=== PATIENT | male | born 1960 | race Caucasian/White ===

== ENCOUNTER 2021-01-12 07:33 | Inpatient (IN) | payer OTHER, MEDICARE, SELFPAY ==
[2021-01-12] VITALS (13 sets, daily range): BP systolic 104–166; BP diastolic 69–110; PULSE 84–102; RESP 16–20; TEMP 37–37.6; O2SAT 91–100; BMI 31.8
[2021-01-12] MEDS: clopidogrel 300 mg Tablet 600 MG PO (07:42)
[2021-01-12] MEDS: ondansetron 2 mg/ML SDV 2 mL 4 MG IVP (07:42)
[2021-01-12] MEDS: morphine 4 mg/mL SDV 1 mL IVP ×2 (07:42→07:53)
[2021-01-12] MEDS: heparin 5,000 unit/mL INJ 1 mL 4000 UNIT IV (07:43)
--- NOTE | 2021-01-12 07:43 | ECG_ITS ---
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 Measurements Intervals [place] Rate: 89 P: 65 HI: 183 QRS: 2 QRSD: 97 T: 50 QT: 384 QTc: 469 Interpretive Statements SINUS RHYTHM ANTEROSEPTAL MYOCARDIAL INFARCTION [40+ ms Q WAVE IN V1-V4], PROBABLY RECCENT Compared to ECG 01/12/2021 07:41:15 Sinus tachycardia no longer present ST (T wave) deviation no longer present Myocardial infarct finding still present Electronically Signed On 01-12-2021 18:43:04 CDT by Anibal Leung M.D. [email or web address]/[id number] f
--- NOTE | 2021-01-12 07:46 | XACV_ITS ---
Ht: 180 cm Wt: 107 kg BSA: 2.34 m2 Gender: Male : 1960 Any Known Allergies: Other Exam Priority: Routine Procedure(s): Procedure Description: Diagnostic procedure Procedure Description: Left Heart Catheterization Diagnostic Cath Status: Emergency Diagnostic Findings * Left Main has no disease. * Circumflex has no disease. * Right Coronary Artery has no disease. * Proximal Left Anterior Descending: subtotal occlusion, OSMANI: 2 flow. * Coronary angiography shows right dominance. Interventional Findings * Proximal Left Anterior Descendin% stenosis treated with a AB TREK 3.00X12 RX BALLOON, and MDT R CELIA 4.5X15 LORENA. 0% residual stenosis, OSMANI: 3 flow. Conclusions 1. There is subtotal occlusion coronary artery disease with one vessel disease. 2. Proximal Left Anterior Descending was treated with a Balloon, and Drug Eluting Stent. Recommendations * 1-Return to inpatient for close monitoring and routine cath care 2-Risk factor modification for secondary prevention 3-Statin and aspirin 81 mg life--long, if tolerated 4-Patient was pre-loaded with 600 mg of Plavix, continue Plavix 75mg p.o. daily for at least one year. We will assess at the end of one year again to continue if further or not 5-Continue optimal medical management 6-Follow up with Dr. Damon in four weeks and your primary care in 10 days. Interventional RX Recommendation: PCI w/o planned CABG Diagnostic RX Recommendation: PCI w/o planned CABG Clinical Evaluation EBL: 5mL-10mL Procedural Details Admit Source: Emergency department. Pre-Procedure Time Out. Identified patient by full name and date of as verbalized by the patient/guarantor. Does the consent match the physician's order: N/A Emergent. Accurate & Complete Informed Consent: N/A Emergent. Inpatient/Outpatient History & Physical on Chart: N/A Emergent. If H&P is completed, is and addenduem needed: N/A Emergent; If yes, is the addendum complete: N/A Emergent. Visualize and Verify Site with Patient/Guarantor: N/A. Relevant Radiology Images available: N/A Emergent. Pre-op teaching completed and patient verbalized understanding. The risks, benefits, and alternatives of sedation and/or procedure were discussed by physician. The patient agrees to continue. Procedure started. Correct patient, site and procedure confirmed by cath team. PERRLA. Strong, equal hand export agent bilaterally. Lungs clear x 5 lobes. IV Site on Arrival: 18 gauge in the left anticubital. Oxygen started at 2liters/min via nasal canula. bilateral groins was prepped with chloroprep then draped in the usual sterile fashion. right radial was prepped with chloroprep then draped in the usual sterile fashion. Physician notified. Baseline sample Acquired. HR: 73 BPM. Physician arrived. Physician scrubbed in. Immediate Pre-Procedure Time Out. Correct Patient: Yes; Correct Procedure: Yes; Correct Site: Yes; Correct Patient Position: Yes; Correct Supplies: Yes; Dried Flammable Prep: Yes; Blood Products Available: N/A;. Lidocaine 1% infiltrated to the right radial. Arterial access obtained. 6 jamaican XB 3.5 guide catheter was inserted over the wire. Inflation number : 1 A AB TREK 3.00X12 RX BALLOON was prepped and advanced across the Prox LAD , then inflated to 20 LAKSHMI for 0:16 seconds. Balloon out. Inflation Number : 2 A ALVINO Hensley CELIA 4.5X15 LORENA -Lot Number# [id number] exp date: 07-25-2021 was prepped and advanced across the Prox LAD. The stent was deployed at 16 LAKSHMI for 0:23 seconds. Stent balloon out over wire. Results checked. Wire out. Guide catheter out. A 5 jamaican JR4 catheter in over wire. Blas Tim, RN updating at this time. Catheter out. TR band placed. Hemostasis obtained. Post Procedure: Pulses reassessed and unchanged. PERRLA. Strong, equal hand export agent bilaterally. No VTE prophylaxis required. A TR Band was successful obtaining hemostatsis at the Right Radial artery insertion site. ACT drawn. Results 400 seconds. Therapeutic limits - pre-heparin administration 90-150 seconds and monitoring heparin during a vascular procedure >250 seconds. Contrast type used: Omnipaque 300 mgI/mL, 500 mL bottle. Contrast Material : Omnipaque 135 ml. [facility] Clinical Fraility Score: 3: Managing Well. Archives Technician Indications: ACS <= 24 hours/STEMI. Chest Pain Symptom Assessment: Typical Angina Symptoms. Cardiovascular Instability: Yes, if yes, STEMI. PCI Indication: Subtotally occluded prox LAD. Post-op diagnosis: drug illuting stent to prox LAD. Complications: none. Estimated blood loss: 5mL-10mL. Procedure completed. Patient transferred by wheelchair to ICU. Vital chart was stopped. Access Site Site: Right Radial artery Sheath Size: 6 Fr Hemostasis Method: TR Band Hemostasis Success: Successful Procedure Medications Start: 8:04 AM Stop: 8:04 AM Medication: Versed Amount: 1 mg Route: I.V. Start: 8:04 AM Stop: 8:04 AM Medication: Fentanyl Amount: 50 mcg Route: I.V. Start: 8:14 AM Stop: 8:14 AM Medication: Heparin Amount: 5000 units Route: I.V. Start: 8:17 AM Stop: 8:17 AM Medication: Aggrastat 12.5 mg/250 mL Amount: 53 ml Route: I.V. bolus Start: 8:19 AM Stop: 8:19 AM Medication: Aggrastat 12.5 mg/250 mL Amount: 19.1 ml/hr Route: I.V. drip Start: 8:19 AM Stop: 8:19 AM Medication: Nitrogylcerin Amount: 200 mcg Route: I.C. Start: 8:12 AM Stop: 8:12 AM Medication: Versed Amount: 1 mg Route: I.V. Start: 8:12 AM Stop: 8:12 AM Medication: Fentanyl Amount: 50 mcg Route: I.V. I, the attending physician, have reviewed and verified all procedure medications. Yes, all medications given per verbal order Report Signatures Finalized by Kareen Damon MD on 01/15/2021 08:57 AM
[2021-01-12] MEDS: metoprolol tartrate 1 mg/1 mL SDV 5 mL 5 MG (07:47)
[2021-01-12] MEDS: nitroglycerin drip 50 MG/250 ML PREMIX IV (07:48)
--- NOTE | 2021-01-12 07:52 | PM.HP ---
Providers/Chief Complaint Admitting Physician: Kareen Damon MD Chief Complaint: STEMI alert History of Present Illness Ezequiel Sawyer is a 60 year old male past medical history significant for cigar smoking/tobacco abuse history of hypertension hyperlipidemia for the last 24 hours has worsening of chest pain and waxing and waning pattern. This morning pain became more consistent along with nausea and diaphoresis he called 911. EKG showed anterior wall ST elevation. He was given nitroglycerin loaded with Plavix and 4000 heparin. Repeat twelve-lead EKG in the ER showed interventricular conduction block with improvement in the ST elevation however patient continues to have chest pain which he describes 7 out of 10. It is the reason we will be taking patient to the Geodetic Technician for urgent coronary angiogram/left heart cath and PCI if indicated. Patient has been explained all risk benefit and alternative for the procedure he has been explained the risk for stroke arrhythmia urgent emergent bypass major minor bleed requiring transfusion. He understood and would like to proceed with it. Medications/Allergies Home Medications Medication Instructions Recorded Confirmed Last Taken Type Pepcid AC 20 mg PO BID 01/12/21 01/12/21 01/11/21 22:30 History allopurinol 200 mg PO DAILY 01/12/21 01/12/21 01/11/21 08:00 History atorvastatin 80 mg PO BEDTIME #90 tab 01/13/21 Unknown Rx carvedilol [Coreg] 6.25 mg PO BID #60 tab 01/13/21 Unknown Rx clopidogrel 75 mg PO DAILY #90 tab 01/13/21 Unknown Rx lisinopril 2.5 mg PO DAILY #60 tab 01/13/21 Unknown Rx Allergies Allergy/AdvReac Type Severity Reaction Status Date / Time lisinopril Allergy ADR-Cough Verified 01/12/21 07:45 PFSH Acute PFSH: Medical History Essential hypertension Vitals/I&O/Wt Last Vital Signs Pulse 92 01/12/21 07:47 Resp 18 01/12/21 07:47 BP 166/110 01/12/21 07:47 Pulse Ox 100 01/12/21 07:47 Weight last 48 hrs Weight 235 lb Physical Exam Narrative: EXAM NARRATIVE: GENERAL: Patient is alert, awake and oriented x3. Moderate distress NECK: No jugular vein distension. HEENT: No cyanosis. No icterus. No pallor. HEART: Regular S1 and S2. No murmur, rub or gallop. LUNGS: Clear to auscultate bilaterally. ABDOMEN: Soft, nontender and nondistended. Positive bowel sounds. No guarding, rebound or tenderness. CENTRAL NERVOUS SYSTEM: Grossly nonfocal. EXTREMITIES: Lower extremities without edema bilaterally. Data : 01/13/21 04:45 01/13/21 04:45 A&P Assessment and plan (1) ST elevation (STEMI) myocardial infarction: Patient has dynamic EKG changes with waxing and waning pattern of chest pain presentation most consistent with ST elevation NV most likely LAD territory. We will proceed with urgent left heart cath. As defined above patient has been consented. He has been loaded with Plavix and given heparin in the ER. Further plan will be advised as per progress of the patient. Status: Acute Qualifiers: Involved coronary artery: other anterior wall coronary artery Qualified Code(s): I21.09 - ST elevation (STEMI) myocardial infarction involving other coronary artery of anterior wall (2) Essential hypertension: Moderately elevated will give nitroglycerin Status: Acute Attestations Medical Necessity Statement*: He is admitted as inpatient expecting stay to cross more than 2 midnights. Coding Level of Care Code New Pt Acute Information Systems Security Specialist for [facility] Patient Type New Medical Decision Making Moderate Complexity Diagnoses ST elevation (STEMI) myocardial infarction I21.09 Involved coronary artery: other anterior wall coronary artery Essential hypertension I10
--- NOTE | 2021-01-12 07:55 | ECG_ITS ---
[facility] Test Date: 2021-01-12 Pat Name: Ezequiel Sawyer Department: Room: ICU12 Gender: Male Drug Purchaser: MATEUS: 1960 Requested By: Silvestre Yousif Order Number: [id number] Laura MD: Anibal Leung M.D. Measurements Intervals [place] Rate: 101 P: 67 MD: 175 QRS: 35 QRSD: 106 T: 67 QT: 356 QTc: 462 Interpretive Statements SINUS TACHYCARDIA ANTEROSEPTAL MYOCARDIAL INFARCTION [40+ ms Q WAVE IN V1-V4], PROBABLY OLD ST DEPRESSION, CONSIDER SUBENDOCARDIAL INJURY [0.1+ mV ST DEPRESSION] INTERPRETATION BASED ON A DEFAULT AGE OF 40 YEARS No previous ECG available for comparison Electronically Signed On 01-12-2021 18:43:16 CDT by Anibal Leung M.D. [id number] f
--- NOTE | 2021-01-12 07:58 | ED_ITS ---
HPI - Chest Pain General: Chief Complaint: Chest Pain Stated Complaint: STEMI alert Time Seen by Provider: 01/12/21 07:35 History of Present Illness: HPI narrative: 60-year-old male presents emergency room via EMS. He was a STEMI called in the field. His initial field EKG showed mild ST elevation in V2 and 3 by the time he arrived here that had resolved and he had some lateral ST depression. Patient is having severe pain radiating into his right arm along with diaphoresis nausea and shortness of breath. He had a similar episode yesterday while he was doing some minimally exertional work around the house after 20 minutes of rest stopped. Today he was at rest when it began. He has no known history of coronary disease has a history of hypertension is currently on amlodipine 10 mg daily which she did not take this morning. He previously was on lisinopril but that was stopped due to JAMIL inhibitor cough. Patient is not a smoker. He has no history of any vascular disease. He is not diabetic. MD complaint: chest pain Pertinent past history: other (Hypertension) Onset (ago): minute(s) Timing of current episode: constant Prior episodes: Yes Onset: during rest Pain location: left chest Pain radiation: left arm and left shoulder Severity: severe Quality: heaviness and sharp Relieving factors: nitroglycerin Exacerbating factors: nothing Associated symptoms: Reports diaphoresis, dyspnea, leg edema, nausea and sense of impending doom; Deny abdominal pain, fever(s), palpitations, syncope or vomiting Treatment prior to arrival: aspirin and nitroglycerin Review of Systems Const: Reports: diaphoresis; Denies: fever(s) ENMT: Denies: throat pain, ear or mastoid pain, nasal discharge or nasal congestion Card: Denies: palpitations or syncope Resp: Reports: dyspnea GI: Reports: nausea; Denies: abdominal pain or vomiting : Denies: flank pain, dysuria, urinary frequency or urinary urgency Skin/Breast: Denies: rash or pruritus PFS ED PFSH: Medical History Essential hypertension Physical Exam Const: COMMON NORMALS: no acute distress GENERAL APPEARANCE: cooperative and comfortable ORIENTATION/CONSCIOUSNESS: Yes awake, Yes oriented to person, Yes oriented to place and Yes oriented to time HENMT: COMMON NORMALS: normocephalic, atraumatic, hearing grossly normal bilaterally and external ears normal HEAD & SCALP: normocephalic and atraumatic EXTERNAL EAR: Yes external ears normal Neck/C-Spine: COMMON NORMALS: no JVD Resp: COMMON NORMALS: normal respiratory effort, No retractions, No use of accessory muscles and clear to auscultation bilaterally AUSCULTATION: clear to auscultation bilaterally Cardio: COMMON NORMALS: no JVD, regular rate, regular rhythm and No murmurs present (Cardio) RATE: regular rate RHYTHM: regular rhythm GI: COMMON NORMALS: Soft to palpation and No hepatosplenomegaly present AUSCULTATION: Yes normoactive bowel sounds PALPATION: Yes Soft to palpation, No Tenderness to palpation present (GI), No Guarding due to palpation present (GI) and Yes No hepatosplenomegaly present Extremity: COMMON NORMALS: normal to inspection, capillary refill normal, no clubbing, cyanosis or edema, no calf tenderness and no pedal edema Neuro: SENSORIUM/ORIENTATION: Yes oriented to person, Yes oriented to place and Yes oriented to time Skin: COMMON NORMALS: no rashes or lesions noted GENERAL SKIN EXAM: no rashes or lesions noted Course Vital Signs: Vital signs: Vital Signs Pulse Rate 92 01/12/21 07:47 Respiratory Rate 18 01/12/21 07:53 Blood Pressure 166/110 01/12/21 07:47 Pulse Oximetry 100 01/12/21 07:53 MDM - Chest Pain MDM Narrative: Medical decision making narrative: Presentation is very classic for escalating angina unstable at this point. He shows initial ST elevation in the field it had improved after the nitro administration and is showing some ST depression there is on a repeat as his pain worsened in the trauma room there is a hint of increasing ST elevation in V2 and 3. He continues to have chest pain his heart rate was in the 116's sinus tachycardia he was given titrated doses of IV Lopressor 2.5x2 he was also started on nitro as well as given a total of 8 mg of morphine 325 aspirin was given in the field he was given 600 of Plavix and [address] Hathaway was in the trauma room seen and evaluated the patient he agrees and is planning to take the patient to the Dry Yard Worker however initially when he arrived there was a patient on the table. Once the patent table was cleared patient was brought directly to the Dry Yard Worker Dr. Hathaway assumed care at that point. Discharge Plan Discharge Patient Disposition: Admitted As Inpatient Clinical Impression: ST elevation (STEMI) myocardial infarction, Essential hypertension Condition: Stable Coding Level of Care Code ED Graphic Design Professor for Nanette Souza
[2021-01-12 08:02] LABS: Basophils # 0.1 10^3/uL (0.0-0.1); Basophils % 0.8 %; Eosinophils # 0.4 10^3/uL (0.0-0.8); Eosinophils % 4.9 %; Hematocrit 46.5 % (42.0-52.0); Hemoglobin 15.6 g/dL (11.7-16.6); Lymphocytes # 2.2 10^3/uL (0.8-4.8); Lymphocytes % 25.5 %; Mean Corpuscular HGB Conc 33.5 g/dL (30.0-36.0); Mean Corpuscular Hemoglobin 28.6 pg (28.0-34.0); Mean Corpuscular Volume 85.3 fL (80-94); Mean Platelet Volume 10.4 fL (7.4-10.4); Monocytes # 0.7 10^3/uL (0.2-0.9); Monocytes % 8.1 %; Neutrophils # 5.13 10^3/uL (1.8-7.7); Neutrophils % 59.4 %; Nucleated Red Blood Cells % 0 %; Platelet Count 366 10^3/cmm (130-400); Red Blood Count 5.45 10^6/uL (4.1-5.3); Red Cell Distribution Width 13.4 % (12.1-15.1); White Blood Count 8.6 10^3/uL (4.0-10.0)
[2021-01-12 08:14] LABS: Troponin(5th) Baseline 57 ng/L (0-15)
[2021-01-12 08:25] LABS: Alanine Aminotransferase 26 U/L (0-41); Albumin Level 4.7 g/dL (3.5-5.2); Alkaline Phosphatase 78 IU/L (40-130); Anion Gap 23.5 (5-19); Aspartate Amino Transferase 27 U/L (0-40); Blood Urea Nitrogen 6 mg/dL (8-23); Calcium 8.9 mg/dL (8.5-10.5); Carbon Dioxide 18 mmol/L (22-29); Chloride 101 mmol/L (98-107); Globulin 3.1 g/dL (1.3-4.6); Glucose 150 mg/dL (65-115); NT Pro B Type Natriuretic Pept 665 pg/mL (0-125); Osmolality Calculated 288 mOsm/kg (285-295); Potassium 3.5 mmol/L (3.5-5.1); Sodium 139 mmol/L (136-145); Total Bilirubin 0.4 mg/dL (0.15-1.2); Total Protein 7.8 g/dL (6.6-8.7)
[2021-01-12] MEDS: atorvastatin 40 mg Tablet 80 MG PO ×2 (09:19→21:08)
[2021-01-12 09:21] LABS: Chol HDL Ratio 3.68 mg/dL (1.0-5.00); Cholesterol 173 mg/dL (0-200); HDL Cholesterol 47 mg/dL (60-100); LDL Cholesterol Calculated 103 mg/dL (50-129); LDL HDL Ratio 2.19 RATIO (0.00-3.22); Triglycerides 117 mg/dL (0-150); VLDL Cholestrol Calculation 23 mg/dL (0-30)
--- NOTE | 2021-01-12 12:16 | USCV_ITS ---
Ezequiel Sawyer Age: 60 Gender: M : 1960 Exam Date: 01/12/2021 13:05 Ordering Phys: Kareen Damon MD ([email or web address]) Technologist: Gemma Hathaway Exam Location: [facility] [place] Indication: HTN BP: 125 / 78 HR: 93 Rhythm: Sinus Technical Quality: MEASUREMENTS (Male / Female) Normal Values 2D ECHO LV Diastolic Diameter PLAX 4.9 cm 4.2 - 5.9 / 3.9 - 5.3 cm LV Systolic Diameter PLAX 3.8 cm IVS Diastolic Thickness 1.4 cm 0.6 - 1.0 / 0.6 - 0.9 cm IVS Systolic Thickness 2.4 cm LVPW Diastolic Thickness 1.6 cm 0.6 - 1.0 / 0.6 - 0.9 cm LVPW Systolic Thickness 1.2 cm LVOT Diameter 2.0 cm LV Ejection Fraction 2D Teich 42.0 % LV Ejection Fraction MOD 2C 43.6 % LV Ejection Fraction 2C AL 46.8 % LA Diameter 3.1 cm LA Width 2.6 cm LA Height 4.4 cm RA Width 3.6 cm RA Height 4.3 cm Aorta at Sinotubular Diameter 3.3 cm M-MODE MV E Point Septal Separation 0.2 cm DOPPLER AV Peak Velocity 107.0 cm/s LVOT Peak Velocity 100.0 cm/s AV Area Cont Eq vti 2.9 cm squared AV Area Cont Eq pk 3.0 cm squared MV Area PHT 4.3 cm squared Mitral E to A Ratio 0.8 MV E' Velocity 28.0 cm/s Mitral E to MV E' Ratio 9.8 Mitral E to LV E' Lateral Ratio 11.1 Mitral E to LV E' Septal Ratio 8.8 TR Peak Velocity 291.7 cm/s TR Peak Gradient 34.0 mmHg TV Peak E Velocity 60.0 cm/s Right Atrial Pressure 3.0 mmHg Pulmonary Artery Systolic Pressu 37.0 mmHg FINDINGS Left Ventricle Moderately increased left ventricular cavity size. Moderately decreased left ventricular systolic function. Left ventricular ejection fraction is estimated at 40 %. Mid to distal anterior apical and mid to distal lateral wall hypokinesis Right Ventricle The right ventricle is normal in size and function. Mild pulmonary hypertension, RVSP 37 mmHg. Right Atrium The right atrium is normal in size. Left Atrium The left atrium is normal in size. Mitral Valve Structurally normal mitral valve without significant stenosis or prolapse. There is no mitral regurgitation. Aortic Valve Structurally normal aortic valve without significant sclerosis or stenosis. There is no aortic regurgitation. Tricuspid Valve Structurally normal tricuspid valve without significant stenosis or regurgitation. Pulmonic Valve Structurally normal pulmonic valve without significant stenosis. There is no pulmonic regurgitation. Pericardium Normal pericardium without effusion. Aorta Normal ascending aorta dimension. CONCLUSIONS 1-Moderately increased left ventricular cavity size. Moderately decreased left ventricular systolic function. Left ventricular ejection fraction is estimated at 40 %. Mid to distal anterior apical and mid to distal lateral wall hypokinesis. 2-No significant valve abnormalities. 3-There is no pericardial effusion. 4-The right ventricle is normal in size and function. Mild pulmonary hypertension, RVSP 37 mmHg. 5-Right atrial pressure is around 5 mm of mercury. 6-There are no prior echocardiogram studies to compare. Kareen Damon MD (Electronically Signed) Final Date: 13 January 2021 21:37 S
--- NOTE | 2021-01-12 12:24 | PC.NURSE ---
15cc total removed from pt TR band. Site dry and intact. Dressing placed over cath site. will monitor
--- NOTE | 2021-01-12 13:55 | ECG_ITS ---
[facility] Test Date: 2021-01-12 Pat Name: Ezequiel Sawyer Department: Room: ICU12 Gender: Male Voip Network Technician: : 1960 Requested By: Silvestre Yousif Order Number: [id number] Laura MD: Anibal Leung M.D. Measurements Intervals [place] Rate: 82 P: 48 TN: 184 QRS: 2 QRSD: 101 T: 90 QT: 404 QTc: 473 Interpretive Statements SINUS RHYTHM WITH OCCASIONAL SUPRAVENTRICULAR PREMATURE COMPLEXES ANTEROSEPTAL MYOCARDIAL INFARCTION [40+ ms Q WAVE IN V1-V4], PROBABLY RECENT ACUTE GA Compared to ECG 01/12/2021 07:51:56 No significant changes Electronically Signed On 01-12-2021 18:59:40 CDT by Anibal Leung M.D. [id number]
[2021-01-13] VITALS (16 sets, daily range): BP systolic 91–136; BP diastolic 60–92; PULSE 78–98; RESP 0–21; TEMP 36.9–37.1; O2SAT 90–94
[2021-01-13 05:54] LABS: Blood Urea Nitrogen 9 mg/dL (8-23); Calcium 8.3 mg/dL (8.5-10.5); Carbon Dioxide 24 mmol/L (22-29); Chloride 101 mmol/L (98-107); Glucose 117 mg/dL (65-115); Osmolality Calculated 284 mOsm/kg (285-295); Sodium 137 mmol/L (136-145)
[2021-01-13 06:16] LABS: Anion Gap 16.2 (5-19); Potassium 4.2 mmol/L (3.5-5.1)
[2021-01-13 06:21] LABS: Basophils # 0.1 10^3/uL (0.0-0.1); Basophils % 0.4 %; Eosinophils # 0.4 10^3/uL (0.0-0.8); Eosinophils % 2.6 %; Hematocrit 46.8 % (42.0-52.0); Hemoglobin 14.9 g/dL (11.7-16.6); Lymphocytes # 1.2 10^3/uL (0.8-4.8); Lymphocytes % 9.3 %; Mean Corpuscular HGB Conc 31.8 g/dL (30.0-36.0); Mean Corpuscular Hemoglobin 28.7 pg (28.0-34.0); Mean Platelet Volume 10.2 fL (7.4-10.4); Monocytes # 1.1 10^3/uL (0.2-0.9); Monocytes % 8.1 %; Neutrophils # 10.49 10^3/uL (1.8-7.7); Neutrophils % 78.8 %; Nucleated Red Blood Cells % 0 %; Platelet Count 299 10^3/cmm (130-400); Red Cell Distribution Width 13.8 % (12.1-15.1); White Blood Count 13.3 10^3/uL (4.0-10.0)
[2021-01-13] MEDS: clopidogrel 75 mg Tablet PO (08:05)
--- NOTE | 2021-01-13 18:52 | P.DS_ITS ---
Discharge Providers Date of Admission: 01/12/21 08:36 Date of Discharge: January 13, 2021 Attending Provider at Admission: Kareen Damon MD Attending Provider at Discharge: Kareen Damon MD Diagnoses at Discharge Discharge Diagnosis (1) ST elevation (STEMI) myocardial infarction: Status: Acute (2) Essential hypertension: Status: Acute Reason for Visit Reason for Visit: STEMI alert Hospital Course Hospital Course 60-year-old male presented with anterior wall ST elevation PA was taken to the Support Representative yesterday he was treated with single drug-eluting 4.5 x 15 mm Jeff integrity stent excellent angiographic result with OSMANI-3 flow was restored. Patient was loaded with Plavix. Overnight no significant event happened. This morning he is walking around without any difficulty his blood pressure is mildly elevated we will titrate medicine and start patient on carvedilol lisinopril we will continue atorvastatin Plavix and aspirin. Patient has been explained in detail that he has to take clopidogrel for at least 1 year. His right wrist wound looks good his physical examination is at the baseline normal. We will discharge him today. Physical Exam Narrative: EXAM NARRATIVE: GENERAL: Patient is alert, awake and oriented x3. NECK: No jugular vein distension. HEENT: No cyanosis. No icterus. No pallor. HEART: Regular S1 and S2. No murmur, rub or gallop. LUNGS: Clear to auscultate bilaterally. ABDOMEN: Soft, nontender and nondistended. Positive bowel sounds. No guarding, rebound or tenderness. CENTRAL NERVOUS SYSTEM: Grossly nonfocal. EXTREMITIES: Lower extremities without edema bilaterally. Pulses palpable in the lower extremities, both dorsalis pedis and posterior tibial. Right wrist wound looks good Discharge Data Data Completed and Pending: Pending at discharge Category Date Time Status [employer]IC[employer] SPECIALIST request for service Stat Exams 01/12/21 07:46 Taken CV echo complete* [id number] Routine Ultrasound 01/12/21 12:16 Taken Labs from last 24 hours 01/13/21 01/13/21 04:45 04:45 WBC 13.3 H RBC 5.20 Hgb 14.9 Hct 46.8 MCV 90.0 D MCH 28.7 MCHC 31.8 D RDW 13.8 Plt Count 299 MPV 10.2 Neut % (Auto) 78.8 Lymph % (Auto) 9.3 [place] % (Auto) 8.1 Eos % (Auto) 2.6 Baso % (Auto) 0.4 Neut # (Auto) 10.49 H Lymph # (Auto) 1.2 [place] # (Auto) 1.1 H Eos # (Auto) 0.4 Baso # (Auto) 0.1 Nucleated RBC % (a uto) 0 Nucleated RBCs # 0.0 Sodium 137 Potassium 4.2 Chloride 101 Carbon Dioxide 24 Anion Gap 16.2 BUN 9 Creatinine 0.7 GFR Calculation 115.0 Glucose 117 H Calculated Osmolal ity 284 L Calcium 8.3 L Vitals: Last Vital Signs Temp 98.7 F 01/13/21 10:00 Pulse 97 01/13/21 13:30 Resp 19 H 01/13/21 13:30 BP 133/92 01/13/21 13:30 Pulse Ox 93 01/13/21 13:30 Discharge Plan Discharge Patient Disposition: Home Condition: Stable Prescriptions: New atorvastatin 40 mg Tablet 80 mg PO BEDTIME Qty: 90 RF: 4 clopidogrel 75 mg Tablet 75 mg PO DAILY Qty: 90 RF: 4 Coreg 6.25 mg tablet 6.25 mg PO BID Qty: 60 RF: 4 lisinopril 2.5 mg tablet 2.5 mg PO DAILY Qty: 60 RF: 0 Continued allopurinol 100 mg Tablet 200 mg PO DAILY RF: 0 Pepcid AC 20 mg Tablet 20 mg PO BID RF: 0 Discontinued amlodipine 10 mg Tablet 10 mg PO DAILY RF: 0 Discharge Orders: Discharge Order (Routine); Ordered 01/13/21 Ordered By: Kareen Damon Discharge Diet: Cardiac Discharge Activity: Increase activity as tolerated Patient Instructions: Lisinopril (By mouth), Atorvastatin (By mouth), Carvedilol (By mouth), Clopidogrel (By mouth), Myocardial Infarction (DC), Left Heart Catheterization (DC), Coronary Angioplasty (DC), Opioid Safety, Post Angiogram Home Care Instructions Activity Restrictions/Additional Instructions: Follow-up with Annika Wagoner in 7 days. Follow-up with Dr. Damon in 6 to 8 weeks. APPOINTMENT HAS BEEN SCHEDULED FOR DATE OF JANUARY 19, 2021 ,YOU WILL NEED TO CALL FOR A CONFIRMATION OF A TIME OF APPOINTMENT.,[facility] [phone] Discharge Attestations Time Spent in Discharge Care*: less than 30 min Specific Discharge Activities: educating patient Quality Metrics Clinical Quality Measures During this hospital stay, did patient experience: AMI Clinical Trial Participant: No Contraindication to aspirin (AMI): Aspirin given Contraindication to statin: Statin prescribed Contraindication to PCI: PCI performed Coding Level of Care Code Established Pt Acute Chg FW DC note Patient Type Established History Detailed Exam Detailed Medical Decision Making Moderate Complexity Diagnoses ST elevation (STEMI) myocardial infarction I21.3 Essential hypertension I10
== END 2021-01-13 13:33 | disposition home or self-care (01) | DRG 247 ==
LOC: ER 07:45 → CCL 07:56 → ICU 08:37
PROVIDERS: Admitting Provider Internal Medicine Cardiovascular Disease; Emergency Provider Family Medicine; Visit Provider Internal Medicine Cardiovascular Disease
PROC: 027034Z Dilation of Coronary Artery, One Artery with Drug-eluting Intraluminal Device, Percutaneous Approach (ICD-10-PCS; principal; 2021-01-12 07:40)
PROC: 027034Z Dilation of Coronary Artery, One Artery with Drug-eluting Intraluminal Device, Percutaneous Approach (ICD-10-PCS; 2021-01-12 07:40)
DX: I21.02 ST elevation (STEMI) myocardial infarction involving left anterior descending coronary artery (principal); F17.210 Nicotine dependence, cigarettes, uncomplicated; I10 Essential (primary) hypertension; E78.5 Hyperlipidemia, unspecified
CPT/HCPCS: 36415; 80048; 80053; 80061; 83880; 84484; 85025; 85347; 93005; 93306; 93454; 96374; 96375; 99285; C1725; C1769; C1874; C1887; C1894; C9600; J1644; J2250; J3010; J3246; J7030; Q9967

== ENCOUNTER 2025-03-09 09:44 | Emergency (ER) | payer OTHER, SELFPAY ==
--- OUTSIDE RECORDS SUMMARY | 2016-09-04 04:34 | XMS_ITS | Continuity of Care Document ---
Author Organization [facility] Address [address] [place] [address] Phone Care Team Providers Care Immersion Metalcleaner Name Role Phone Andrew Bobo MD, MD Unavailable Unavaila ble Allergies, Adverse Reactions, Alerts Substance Reaction Status Criticality No Known Drug Allergies Active No I nformation Medications Medication Instructions Dosage Effective Dates (start - stop) Status Comments ibuprofen 800 mg tablet take 1 tablet by ORAL route every 8 hours with food 800 MG - Active allopurinol 100 mg tablet take 1 tablet by oral route 3 times every day 100 MG - Active Procedures Procedure Date X-ray exam knee, 1 or 2 views 7 X-ray exam both knees, standing 017 X-ray exam knee, 1 or 2 views 7 Office/outpatient visit,[facility] 2016 Advance Directives Directive Yes / No Effective Date File Name No Information Encounters Encounter Description Practice Location Reason(s) For Visit Diagnoses Date Provider Providers Copied on Encounter [facility], [address] [place] [address], [id number], [place] tel:[phone] [facility] No Information 7 Jihan Morales. [address], [place] [address], [place], [place], [id number] , [place]. tel:[phone] Office/outpa tient visit,[facility], [address] [place] [address], [id number], [place] tel:[phone] [facility] bilateral knees (chief complaint) Pain in left kneePain in right kneeChondromalaci a 7 Jihan Morales. [address], [address], [place], [place], [id number] , [place]. tel: [phone] Family History Family Member Type Diagnosis Age At Onset Father Problem (finding) gout Mother Problem (finding) Arthritis Father Problem (finding) Renal disease Problem (finding) No family history of Di abetes mellitus Father Problem (finding) Arthritis Mother Problem (finding) hypertension Immunizations Vaccine Date Status Comments Flu (split) (3 yrs or older) administered Source: Other Provider Payers Payer name Insurance type Covered libertarian ID Authoriza tion(s) No Information Social History Type Description Quantity Date Captured Comments Alcohol Use Details Unknown Caffeine Use Details Unknown Tobacco Use Status Smoking Status No Information Sex Male Chief Complaint And Reason For Visit No Information Reason For Referral Reason For Referral No Information Plan Of Treatment Date Type Action Status Referral Ordered: X-ray exam knee, 1 or 2 views RT ordered Referral Ordered: X-ray exam knee, 1 or 2 views LT ordered Referral Ordered: X-ray exam both knees, standing ordered Patient Education Body Mass Index: After Your Visit completed History Of Present Illness Encounter Date Complaint History Of Prese nt Illness bilateral knees Ezequiel presents t o the office for bilateral knees complaints. Functional Status Date Functional Assessmen t No Information Instructions Date Instruction Additional Infor mation No Information Assessments Type Assessment Date No Information Patient Care Teams Name Effective Dates (start - stop) Status Members No Information
[2025-03-09 09:46] VITALS: BP 161/86; PULSE 69; TEMP 36.6; O2SAT 97
--- NOTE | 2025-03-09 10:20 | W.ED.GENADLT ---
HPI - General Adult General: Chief complaint: Neck Pain/Injury Stated complaint: neck pain, R leg has a sore on it Time Seen by Provider: 03/09/25 09:52 Source: patient Mode of arrival: ambulatory Limitations: no limitations History of Present Illness: 64-year-old male who presents to the ED with complaint of right lower leg lesion for the past month and left-sided neck pain over the past couple of weeks. Patient reports that the lesion on his right lower leg began as a small dot and has now grown into a nickel size. He states the lesion does not really bother him but has not healed, which concerned him. Denies any itchiness or bleeding. Also denies any trauma to the area prior to the lesion appearing there. He also reports of left-sided neck pain rating it 7/10 and states that the pain radiates to his left shoulder and the muscle feels tight . 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 He denies numbness/weakness to the left arm, chest pain, shortness of breath, headache or cough. He has only tried Tylenol, which has somewhat helped. No other complaints at this time. Onset (ago): week(s) (skin lesion x 1 month; neck pain x 2 weeks) Location: neck, right and lower extremity Radiation: other (shoulder) Severity: moderate Severity scale (1-10): 7 Pain Consistency: intermittent Relieving factors: medication (Tylenol) Exacerbating factors: other (movement of neck and L shoulder) Associated symptoms: Deny chest pain, cough, dyspnea, fevers/chills, headache(s), malaise, nausea, short of breath or weakness Related Data Home Medications ?Medication ?Instructions ?Recorded ?Confirmed allopurinol 100 mg tablet 200 mg PO DAILY 01/12/21 01/12/21 famotidine 20 mg tablet (Pepcid AC) 20 mg PO BID 01/12/21 01/12/21 Previous Rx's ?Medication ?Instructions ?Recorded atorvastatin 40 mg tablet 80 mg (2 x 40 mg) PO BEDTIME #90 01/13/21 tabs carvedilol 6.25 mg tablet (Coreg) 6.25 mg PO BID #60 tabs 01/13/21 clopidogrel 75 mg tablet 75 mg PO DAILY #90 tabs 01/13/21 lisinopril 2.5 mg tablet 2.5 mg PO DAILY #60 tabs 01/13/21 cyclobenzaprine 10 mg tablet 10 mg PO TID #14 tabs 03/09/25 ibuprofen 800 mg tablet 800 mg PO Q8H PRN pain #20 tabs 03/09/25 methylprednisolone 4 mg tablets in See Rx Instructions PO .COMPLEX 03/09/25 a dose pack (Medrol (Gera)) #21 ea Allergies Allergy/AdvReac Type Severity Reaction Status Date / Time lisinopril Allergy ADR-Cough Verified 03/09/25 09:53 Review of Systems Const: Denies: fever(s), chills, body aches, fatigue or malaise Eyes: Denies: change in vision, blurry vision, photophobia, floaters or seeing flashes ENMT: Denies: ear or mastoid pain, tinnitus or disequilibrium Card: Denies: chest pain Resp: Denies: dyspnea or non-productive cough GI: Denies: nausea : Denies: flank pain or difficulty urinating Musc: Reports: neck pain; Denies: back pain, extremity pain, extremity swelling, joint pain, joint swelling or joint redness Skin/Breast: Reports: new lesions (R LE) Neuro: Denies: headache(s), numbness in extremities, weakness in extremities, sensory changes or dizziness PFSH ED PFSH: Medical History Essential hypertension Physical Exam Const: COMMON NORMALS: no acute distress, average body habitus, patient oriented x3, no limitations, healthy appearing, alert and well nourished GENERAL APPEARANCE: cooperative HENMT: COMMON NORMALS: normocephalic and atraumatic HEAD & SCALP: normal to inspection, normocephalic and atraumatic FACE & SINUS: normal facial exam and face symmetric Eye: COMMON NORMALS: Equal, round and reactive pupils present and EOMs intact bilaterally GENERAL EYE: appearance normal, both eyes and all related structures and normal light reflex PUPIL: Yes Equal, round and reactive pupils present DIRECT OPHTHALMOSCOPY: Yes normal light reflex Neck/C-Spine: COMMON NORMALS: full ROM CERVICAL SPINE: Yes cervical ROM normal, Yes Paracervical muscle tenderness left, Yes Trapezius muscle tenderness left and No Lhermitte's sign positive Resp: COMMON NORMALS: normal respiratory effort and clear to auscultation bilaterally AUSCULTATION: clear to auscultation bilaterally Cardio: COMMON NORMALS: regular rate and regular rhythm RATE: regular rate RHYTHM: regular rhythm Back/Pelvis: THORACIC SPINE/UPPER BACK: No thoracic spinal tenderness LUMBAR SPINE/LOWER BACK: No lumbar spinal tenderness Extremity: GENERAL: Yes normal exam except as noted Neuro: COMMON NORMALS: patient oriented x3 SENSORIUM/ORIENTATION: Yes alert Skin: LESIONS: lesion noted (right lower extremity-nickel sized erythematous plaque like lesion) Course Vital Signs: Vital signs: Vital Signs Temperature 97.9 F 03/09/25 09:46 Pulse Rate 66 03/09/25 10:42 Respiratory Rate 16 03/09/25 10:42 Blood Pressure 160/94 03/09/25 10:42 Pulse Oximetry 95 03/09/25 10:42 Oxygen Delivery Me thod Room Air 03/09/25 09:46 MDM - General Adult Medical Decision Making Patient will be treated for musculoskeletal pain to the left side of his neck. Discussed following up with primary care for the lesion to his right leg-if no improvement over the next few weeks, referral to dermatology for potential biopsy. Medical Records I reviewed the patient's medical records. No radiology studies performed this visit Discharge Plan Discharge Patient Disposition: Home Clinical Impression: Skin lesion of right leg Strain of left trapezius muscle Qualifiers: Encounter type: initial encounter Qualified Code(s): S46.812A - Strain of other muscles, fascia and tendons at shoulder and upper arm level, left arm, initial encounter Condition: Stable Prescriptions: New ibuprofen 800 mg tablet 800 mg PO Q8H PRN (Reason: pain) Qty: 20 0RF methylprednisolone [Medrol (Gera)] 4 mg tablets,dose pack See Rx Instructions .ROUTE .COMPLEX Qty: 21 0RF Rx Instructions: orally per package directions cyclobenzaprine 10 mg tablet 10 mg PO TID Qty: 14 0RF No Action allopurinol 100 mg Tablet 200 mg PO DAILY Pepcid AC 20 mg Tablet 20 mg PO BID atorvastatin 40 mg Tablet 80 mg PO BEDTIME Qty: 90 4RF clopidogrel 75 mg Tablet 75 mg PO DAILY Qty: 90 4RF Coreg 6.25 mg tablet 6.25 mg PO BID Qty: 60 4RF Rx Instructions: must administer with a meal/food lisinopril 2.5 mg tablet 2.5 mg PO DAILY Qty: 60 0RF Discharge Orders: Discharge ED (Routine); Ordered 03/09/25 Ordered By: Deepa Toscano Patient Instructions: Cervical Strain (DC), Muscle Strain (DC), Neck Pain (ED), Patient Portal & Sophia Instructions Activity Restrictions/Additional Instructions: As we discussed, you may try the anti-inflammatories, muscle relaxers, and steroids to help with your neck discomfort. We also spoke about topical lidocaine, heat, massage therapy. Please follow-up with your primary care in 1 to 2 weeks if symptoms are not improving. We also discussed seeing them regarding the skin lesion to your right lower leg. If this does not begin to improve, referral to dermatology for potential biopsy may be indicated. Print Language: Spanish Coding Level of Care Code ED Digital Design Engineer for Nanette Souza
[2025-03-09] MEDS: orphenadrine 30 mg/mL Inj 2 mL 60 MG IM (10:40)
[2025-03-09 10:42] VITALS: BP 160/94; PULSE 66; RESP 16; O2SAT 95
[2025-03-09 11:01] VITALS: BP 151/94; PULSE 62; RESP 16; O2SAT 96
== END 2025-03-09 11:09 | disposition home or self-care (01) ==
PROVIDERS: Emergency Provider Physician Assistant
DX: S46.812A Strain of other muscles, fascia and tendons at shoulder and upper arm level, left arm, initial encounter (principal); L98.9 Disorder of the skin and subcutaneous tissue, unspecified; Z79.02 Long term (current) use of antithrombotics/antiplatelets; I10 Essential (primary) hypertension; X58.XXXA Exposure to other specified factors, initial encounter
CPT/HCPCS: 96372; 99284; J1100; J1885; J2360